=== PATIENT | female | born 1980 | race African-American/Black ===

== ENCOUNTER 2016-06-23 13:53 | Emergency (ER) | payer OTHER ==
[~2016-06-23] VITALS: Ht 160 cm; Wt 117.9 kg
--- NOTE | 2016-06-23 15:12 | ED GI/GU/ABDOMINAL COMPLAINT ---
History of Present Illness General Chief Complaint: Abdominal Pain/Flank Pain Stated Complaint: RECTAL BLEED SINCE TUESDAY Source: patient, family Exam Limitations: no limitations Vital Signs & Intake/Output Vital Signs & Intake/Output Vital Signs Date Time Temp Pulse Resp B/P B/P Pulse O2 O2 Flow FiO2 Mean Ox Delivery Rate 06/23 1834 97.8 104 18 130/88 97 06/23 1823 83 18 130/91 96 06/23 1613 97.8 100 18 108/79 100 06/23 1401 96.6 16 Room Air Allergies Coded Allergies: latex (Severe, RASH 06/23/16) Reconcile Medications Ondansetron (Zofran Odt) 4 MG TAB.RAPDIS 1 TAB SL TID PRN NAUSEA Triage Note: 36 Y/O FEMALE C/O DIFFUSE ABDOMINAL PAIN X A FEW DAYS; ALSO NOTICED RECTAL BLEEDING, "DARK BLOOD ON THE TISSUE AND IN THE TOILET BOWEL". REPORTS INTERMITTENT NAUSEA AND HEADACHES WELL. DNEIES URINARY SYMPTOMS. AFEBRILE. Triage Nurses Notes Reviewed? yes ? N Is pt currently ? No HPI: Patient presents to the emergency room with left lower quadrant crampy abdominal pain and dark red blood per rectum for the past 3 days. The pain and blood are improving. At its worse the carpi pain was 7 out of 10. There is no radiation. No aggravating or mitigating factors. Currently the pain is 3 out of 10. Patient states that she was originally noted some dark red blood and clots in the toilet water and is now only having dark red blood on the toilet paper. Patient comes in for evaluation. Past History Travel History Traveled to [place] past 21 day No Medical History Any Pertinent Medical History? see below for history Neurological: NONE EENT: NONE Cardiovascular: NONE Respiratory: NONE Gastrointestinal: NONE Hepatic: NONE Renal: NONE Musculoskeletal: rheumatoid arthritis Psychiatric: NONE Endocrine: NONE Blood Disorders: NONE Cancer(s): NONE METROLOGY SPECIALIST/Reproductive: NONE Surgical History Surgical History: non-contributory Psychosocial History What is your primary language Bel[place]ian Tobacco Use: Never used ETOH Use: denies use Illicit Drug Use: denies illicit drug use Family History Hx Contributory? No Review of Systems Review of Systems Constitutional: Reports: no symptoms. EENTM: Reports: no symptoms. Respiratory: Reports: no symptoms. Cardiovascular: Reports: no symptoms. GI: Reports: see HPI, abdominal pain, bloody stool. Genitourinary: Reports: no symptoms. Musculoskeletal: Reports: no symptoms. Skin: Reports: no symptoms. Neurological/Psychological: Reports: no symptoms. Hematologic/Endocrine: Reports: no symptoms. Immunologic/Allergic: Reports: no symptoms. All Other Systems: Reviewed and Negative Physical Exam Physical Exam General Appearance: well developed/nourished, alert, awake, anxious, mild distress Head: atraumatic, normal appearance Eyes: Bilateral: PERRL, EOMI. Ears, Nose, Throat, Mouth: hearing grossly normal, moist mucous membrane Neck: normal inspection, supple, full range of motion Respiratory: normal breath sounds, chest non-tender, no respiratory distress, lungs clear Cardiovascular: regular rate/rhythm, normal peripheral pulses Gastrointestinal: normal bowel sounds, soft, non-tender, no organomegaly Rectal: MINUMAL AMOUNT OF DARK RED BLOOD. HEME POSITIVE Back: normal inspection, normal range of motion Extremities: normal range of motion Neurologic/Psych: no motor/sensory deficits, awake, alert, oriented x 3, normal gait, normal mood/affect Skin: intact, normal color, warm/dry Core Measures ACS in differential dx? No Severe Sepsis Present: No Septic Shock Present: No Progress Differential Diagnosis: colon cancer, diverticulitis, gastritis, hepatitis, ischemic bowel, inflamm bowel dis Plan of Care: Orders Procedure Date/time Status MISTAKE 06/23 1526 Active Saline Lock 06/23 1510 Active URINALYSIS 06/23 1510 Active HUMAN BETA HCG SCREEN 06/23 1510 Complete CBC WITHOUT DIFFERENTIAL 06/23 1510 Complete BASIC METABOLIC PANEL 06/23 1510 Complete TYPE & SCREEN (NOT X-MATCH) 06/23 1510 Complete Laboratory Tests 06/23/16 1530: Anion Gap 13, Estimated GFR > 60, BUN/Creatinine Ratio 17.1, Glucose 105 H, Calcium 8.6, Total Beta HCG NEGATIVE, CBC w Diff NO MAN DIFF REQ, RBC 5.01, MCV 76.0 L, MCH 24.5 L, RDW 16.1 H, MPV 7.8, Gran % 72.5, Lymphocytes % 16.7 L, Monocytes % 5.7, Eosinophils % 4.0, Basophils % 1.1, Absolute Granulocytes 8.5 H, Absolute Lymphocytes 2.0, Absolute Monocytes 0.7 H, Absolute Eosinophils 0.5 , Absolute Basophils 0.1, PUBS MCHC 32.2 L Diagnostic Imaging: Viewed by Me: CT Scan. Discussed w/RAD: CT Scan. Radiology Impression: no acute abnormality Initial ED EKG: none Departure Departure Disposition: HOME OR SELF CARE Condition: Stable Clinical Impression Primary Impression: Colitis Referrals: ADOLFO LORENZO,ESTEFANIA REDDY MD,TIM (PCP/Family) Additional Instructions: RETURN IF PAIN WORSENS, BLEEDING WORSENS OR FOR ANY CONCERNS DO NOT TAKE METFORMIN AND CALL YOUR DOCTOR TOMORROW TO HAVE A REPEATR KIDNEY FUNCTION TEST IN 2 DAYS. LONG YOUR KIDNEY FONCTION REMAINS FINE, THEN YOU CAN RESUME THE METFORMIN. Departure Forms: Customer Survey General Discharge Information Prescriptions: Current Visit Scripts Ondansetron (Zofran Odt) 1 TAB SL TID PRN NAUSEA #10 TAB
[2016-06-23 15:41] LABS: ABSOLUTE BASOPHIL COUNT 0.1 /CUMM (0.0-0.2); ABSOLUTE EOSINOPHIL COUNT 0.5 /CUMM (0.0-0.7); ABSOLUTE GRANULOCYTE CT 8.5 /CUMM (1.4-6.5); ABSOLUTE MONOCYTE COUNT 0.7 /CUMM (0.10-0.60); BASOPHIL % 1.1 % (0.0-2.0); GRANULOCYTE % 72.5 % (42.2-75.2); HEMATOCRIT 38.1 % (37-47); MEAN CORPUSCULAR HGB 24.5 PG (27.0-31.0); MEAN CORPUSCULAR HGB CONC 32.2 G/DL (33.0-37.0); MEAN PLATELET VOLUME 7.8 FL (7.4-10.4); PLATELET COUNT 429 /CUMM (130-400); RBC DISTRIBUTION WIDTH 16.1 % (11.5-14.5); RED BLOOD CELL CT 5.01 /CUMM (4.20-5.40); WHITE BLOOD CELL COUNT 11.7 /CUMM (4.8-10.8)
--- NOTE | 2016-06-23 17:39 | CT SCAN REPORT ---
EXAMINATION: CT ABDOMEN AND PELVIS WITH CONTRAST CLINICAL INFORMATION: Left lower quadrant pain COMPARISON: None TECHNIQUE: Multidetector volumetric imaging was performed of the abdomen and pelvis before and after the IV administration of 95 mL of Optiray 320 intravenous contrast. Sagittal and coronal reformatted images were obtained on the technologist's workstation. DLP: 1227 mGy-cm FINDINGS: LUNG BASES: The visualized lung bases are unremarkable. LIVER, GALLBLADDER, AND BILIARY TREE: The liver is normal in size, shape, and attenuation. No focal hepatic lesion or biliary ductal dilatation is present. The gallbladder is unremarkable with no evidence of radiopaque gallstones, gallbladder wall thickening, or obvious pericholecystic inflammatory changes. PANCREAS: Unremarkable. SPLEEN: Unremarkable. ADRENAL GLANDS: Unremarkable. KIDNEYS AND URETERS: The kidneys are normal in size, shape, and attenuation. No hydronephrosis, hydroureter, or calculi seen. No perinephric stranding. BLADDER: Unremarkable. GASTROINTESTINAL TRACT: The stomach and small bowel are unremarkable. No dilated loops of bowel or evidence of obstruction. Normal appendix. There is no colonic wall thickening or inflammatory change. No diverticulosis noted. No free air or free fluid. ABDOMINAL WALL: No significant hernia is appreciated. LYMPH NODES: Normal. VASCULAR: Unremarkable. PELVIC VISCERA: An IUD is in place. Mild prominence of the left ovary with multiple follicles present. OSSEOUS STRUCTURES: No acute or suspicious osseous abnormality. IMPRESSION: No acute findings of the abdomen or pelvis. Specifically, no evidence of colitis or diverticulitis.
[2016-06-23] MEDS ORDERED: ZOFRAN ODT4 M1 SL (18:11)
[2016-06-23 18:34] VITALS: BP 130/88
== END 2016-06-23 18:48 ==
LOC: ERH 13:53
PROVIDERS: Emergency Medicine
DX: K52.9 Noninfective gastroenteritis and colitis, unspecified (principal)
CPT/HCPCS: 74177